=== PATIENT | female | born 1960 | race Caucasian/White ===

== ENCOUNTER 2017-05-29 17:24 | Emergency (ER) | payer MEDICARE, OTHER ==
[~2017-05-29] VITALS: Ht 167.6 cm; Wt 122.5 kg
[2017-05-29] MEDS ORDERED: MILK OF MA400 MG/5 M PO (18:07)
[2017-05-29] MEDS ORDERED: TYLENOL325 MG PO (18:07)
[2017-05-29] MEDS ORDERED: LANTUS100 UNITS/ SUB-Q (18:10)
[2017-05-29] MEDS ORDERED: HUMALOG100 UNIT/1 SUB-Q (18:10)
[2017-05-29] MEDS ORDERED: TIROSINT125 MCG PO (18:11)
[2017-05-29] MEDS ORDERED: AMPHETAMINE SAL10 MG PO (18:11)
[2017-05-29] MEDS ORDERED: ASPIR-LOW81 MG PO (18:12)
[2017-05-29] MEDS ORDERED: FLONASE ALLERG9.9 ML NAS (18:13)
[2017-05-29] MEDS ORDERED: HALOPERIDOL5 MG/1 ML INJ (18:13)
[2017-05-29] MEDS ORDERED: LOSARTAN POTASS50 MG PO (18:14)
[2017-05-29] MEDS ORDERED: FISH OIL EC 1,1 EACH PO (18:14)
[2017-05-29] MEDS ORDERED: GLUCOPHAGE500 MG PO (18:14)
[2017-05-29] MEDS ORDERED: BENZTROPINE MESY1 MG PO (18:15)
[2017-05-29] MEDS ORDERED: LOPID600 MG PO (18:15)
[2017-05-29] MEDS ORDERED: POLYETHYLENE G500 G2 PO (18:17)
[2017-05-29] MEDS ORDERED: LIPITOR40 MG PO (18:18)
[2017-05-29] MEDS ORDERED: CLOZARIL100 MG PO (18:19)
== END 2017-05-29 19:03 | disposition home or self-care (01) ==
LOC: ED 17:24
DX: K59.00 Constipation, unspecified (principal); Z88.8 Allergy status to other drugs, medicaments and biological substances; Z79.4 Long term (current) use of insulin; Z79.899 Other long term (current) drug therapy; Z79.82 Long term (current) use of aspirin
CPT/HCPCS: 99282

== ENCOUNTER 2018-04-02 15:01 | Emergency (ER) | payer MEDICARE, OTHER ==
[~2018-04-02] VITALS: Ht 167.6 cm; Wt 129.7 kg
[~2018-04-02 15:01] MED LIST: AMPHETAMINE SAL10 MG PO; ASPIR-LOW81 MG PO; BENZTROPINE MESY1 MG PO; CLOZARIL100 MG PO; FISH OIL EC 1,1 EACH PO; FLONASE ALLERG9.9 ML NAS; GLUCOPHAGE500 MG PO; HALOPERIDOL5 MG/1 ML INJ; HUMALOG100 UNIT/1 SUB-Q; LANTUS100 UNITS/ SUB-Q; LIPITOR40 MG PO; LOPID600 MG PO; LOSARTAN POTASS50 MG PO; MILK OF MA400 MG/5 M PO; POLYETHYLENE G500 G2 PO; TIROSINT125 MCG PO; TYLENOL325 MG PO
[2018-04-02] MEDS ORDERED: ASCORBIC ACID500 MG PO (15:30)
== END 2018-04-02 17:38 | disposition home or self-care (01) ==
LOC: ED 15:01
DX: K59.00 Constipation, unspecified (principal); E11.9 Type 2 diabetes mellitus without complications; Z88.8 Allergy status to other drugs, medicaments and biological substances; Z79.4 Long term (current) use of insulin; Z79.82 Long term (current) use of aspirin; Z79.899 Other long term (current) drug therapy
CPT/HCPCS: 99283

== ENCOUNTER 2018-04-03 19:45 | Emergency (ER) | payer MEDICARE, OTHER ==
[~2018-04-03] VITALS: Ht 167.6 cm; Wt 129.7 kg
[~2018-04-03 19:45] MED LIST changes: +ASCORBIC ACID500 MG PO
== END 2018-04-03 20:15 | disposition left against medical advice (07) ==
LOC: ED 19:45
DX: Z53.21 Procedure and treatment not carried out due to patient leaving prior to being seen by health care provider (principal)